=== PATIENT | male | born 2000 | race Caucasian/White ===

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

== ENCOUNTER 2021-12-07 23:48 | Emergency (ER) | payer OTHER ==
[~2021-12-07] VITALS: Ht 170.2 cm; Wt 95.2 kg
[2021-12-08] MEDS ORDERED: PENVK500 PO (00:21)
[2021-12-08] MEDS ORDERED: Veetids 500500 MG PO (00:25)
== END 2021-12-08 00:38 | disposition home or self-care (01) ==
LOC: ER 23:48
DX: J02.0 Streptococcal pharyngitis (principal); F17.210 Nicotine dependence, cigarettes, uncomplicated
CPT/HCPCS: 96372; 99282; A9270; J1885

== ENCOUNTER → 2022-11-07 | Outpatient (CLI) | payer OTHER ==
[~2022-11-07] MED LIST: PENVK500 PO; Veetids 500500 MG PO
[2022-11-07 14:53] LABS: BASOPHILS ABSOLUTE AUTO 0.09 K/mm3 (0.00-0.23); BASOPHILS PERCENT AUTO 1 % (0-2); EOSINOPHILS ABSOLUTE AUTO 0.11 K/mm3 (0.00-0.68); EOSINOPHILS PERCENT AUTO 1 % (0-6); Hematocrit 48.9 % (37.0-53.0); Hemoglobin 16.9 g/dL (13.5-17.5); IMMATURE GRAN ABSOLUTE AUTO 0.06 K/mm3 (0.00-0.10); IMMATURE GRAN PERCENT AUTO 0 % (0-1); LYMPHOCYTES ABSOLUTE AUTO 3.61 K/mm3 (0.84-5.20); LYMPHOCYTES PERCENT AUTO 26 % (21-46); MONOCYTES ABSOLUTE AUTO 0.66 K/mm3 (0.16-1.47); MONOCYTES PERCENT AUTO 5 % (4-13); Mean Corpuscular HGB 30.5 pg (26.0-34.0); Mean Corpuscular HGB Conc 34.6 g/dL (31.5-36.5); Mean Corpuscular Volume 88 fL (80-100); Mean Platelet Volume 11.5 fL (9.1-12.4); NEUTROPHILS ABSOLUTE AUTO 9.49 K/mm3 (1.96-9.15); NEUTROPHILS PERCENT AUTO 68 % (41-73); Platelet Count 205 K/mm3 (150-400); RDW Coefficient Variation 12.5 % (11.7-14.2); RDW Standard Deviation 40.5 fL (35.1-46.3); Red Blood Cell Count 5.55 M/mm3 (4.30-5.90); White Blood Cell Count 14.02 K/mm3 (4.00-11.30)
[2022-11-07 16:04] LABS: Alanine Aminotransfer (ALT/SGP 23 U/L (12-78); Alk Phos 48 U/L (50-136); Anion Gap 5 mmol/L (6-16); Aspartate Aminotrans (AST/SGOT 15 U/L (12-37); Bilirubin, Total 0.4 mg/dL (0.1-1.0); Blood Urea Nitrogen 11 mg/dL (8-24); Bun/Creatinine Ratio 11.8 (12.0-20.0); CHOL/HDL RATIO 4.6; CO2, Blood 26 mmol/L (21-32); Calcium, Blood 8.6 mg/dL (8.5-10.1); Chloride, Blood 110 mmol/L (98-108); Cholesterol 153 mg/dL (50-200); Creatinine, Blood 0.94 mg/dL (0.60-1.20); Glomerular Filtration Rate 117 (60-); Glucose, Blood 104 mg/dL (70-99); HDL Cholesterol 33 mg/dL (>39); Low Density Lipoprotein Chol 99 mg/dL (0-110); Potassium, Blood 4.2 mmol/L (3.5-5.5); Sodium, Blood 141 mmol/L (136-145); Triglycerides 107 mg/dL (30-140); Very Low Density Lipoprot Chol 21 mg/dL (6-28)
== END | disposition home or self-care (01) ==
LOC: LAB SHORT 12:35 → LAB 12:35
PROVIDERS: Family Medicine Adult Medicine
DX: Z13.220 Encounter for screening for lipoid disorders (principal); Z13.29 Encounter for screening for other suspected endocrine disorder; F17.200 Nicotine dependence, unspecified, uncomplicated
CPT/HCPCS: 80053; 80061; 84443; 85025

== ENCOUNTER 2025-01-08 19:55 | Emergency (ER) | payer OTHER ==
[~2025-01-08] VITALS: Ht 170.2 cm; Wt 90.7 kg
[2025-01-08 20:02] VITALS: BP 135/73
[2025-01-08] MEDS ORDERED: CLIN300 PO (20:53)
[2025-01-08] MEDS ORDERED: OXAYDO5 M1 PO (20:54)
[2025-01-08] MEDS ORDERED: Ketorolac Tromethamine 15mg Vial IM ONE (20:55)
[2025-01-11 15:58] LABS: HSV SUBTYPE SOURCE mouth
== END 2025-01-08 21:15 | disposition home or self-care (01) ==
LOC: ER 19:55
PROVIDERS: Student in an Organized Health Care Education/Training Program
DX: K05.10 Chronic gingivitis, plaque induced (principal); K05.30 Chronic periodontitis, unspecified; F17.210 Nicotine dependence, cigarettes, uncomplicated; Z88.0 Allergy status to penicillin
CPT/HCPCS: 87529; 99282; A9270